=== PATIENT | female | born 1985 | race Caucasian/White ===

== ENCOUNTER 2018-11-19 08:27 | Emergency (ER) | payer SELFPAY ==
[2018-11-19 08:35] VITALS: BP 120/68
--- NOTE | 2018-11-19 09:01 | Emergency Department Report ---
Minor Respiratory - HPI Chief Complaint: Sore Throat Stated Complaint: HEADACHE/COLD/BACK PAIN Time Seen by Provider: 11/19/18 08:52 Duration: 3 Days Pain Location: Throat, Nose Severity: mild Minor Respiratory: Yes Rhinorrhea, Yes Sore Throat, Yes Able to Tolerate Fluids, Yes Cough, No Sick Contacts, No Chest Pain, No Shortness of Breath, No Fever Other History: Mrs. Stein presents with cold symptoms of nasal congestion cough. She has lower back pain. Subjective fever. Sick for 3 days. Mild symptoms. These Tylenol last night. Nonproductive cough. Denies chest pain denies abdominal pain. ED Review of Systems ROS: Stated complaint: HEADACHE/COLD/BACK PAIN Other details as noted in HPI Constitutional: fever. denies: malaise ENT: throat pain Respiratory: cough. denies: shortness of breath Cardiovascular: denies: chest pain Genitourinary: denies: urgency, dysuria, frequency, hematuria Musculoskeletal: back pain ED Past Medical Hx - Past Medical History Previous Medical History?: No - Surgical History Additional Surgical History: C/S - Social History Smoking Status: Never Smoker Substance Use Type: None - Medications Home Medications: Home Medications Medication Instructions Recorded Confirmed Last Taken Type Cetirizine HCl [Zyrtec] 10 mg PO DAILY 10 Days #10 tablet 11/19/18 Unknown Rx Hydrocodone/Chlorphen P-Stirex 5 ml PO BID 10 Days #100 ml 11/19/18 Unknown Rx [Tussionex Pennkinetic Susp] Minor Respiratory Exam - Exam General: Vital signs noted. No distress. Alert and acting appropriately. HEENT: Yes Moist Mucous Membranes, Yes Rhinorrhea, No Pharyngeal Erythema, No Pharyngeal Exudates, No Conjuctival Injection Neck: Yes Supple, No Adenopathy Lungs: Yes Good Air Exchange, No Wheezes, No Ronchi, No Stridor, No Cough, No Labored Respirations, No Retractions, No Use of Accessory Muscles, No Other Abnormal Lung Sounds Heart: Yes Regular, No Murmur Abdomen: Yes Normal Bowel Sounds, No Tenderness, No Peritoneal Signs Skin: No Rash, No Edema Neurologic: Alert and oriented, no deficits. Musculoskeletal: Unremarkable. ED Course Vital Signs 11/19/18 08:33 Temperature 98 F Pulse Rate 90 Respiratory 18 Rate Blood Pressure 120/68 O2 Sat by Pulse 99 Oximetry ED Medical Decision Making - Medical Decision Making Viral upper respiratory infection: Prescription provided for Zyrtec and Tussionex Critical care attestation.: If time is entered above; I have spent that time in minutes in the direct care of this critically ill patient, excluding procedure time. ED Disposition Clinical Impression: Viral URI Disposition: DC-01 TO HOME OR SELFCARE Is pt being admited?: No Does the pt Need Aspirin: No Condition: Stable Instructions: Upper Respiratory Infection (ED) Prescriptions: Cetirizine HCl [Zyrtec] 10 mg PO DAILY 10 Days #10 tablet Hydrocodone/Chlorphen P-Stirex [Tussionex Pennkinetic Susp] 5 ml PO BID 10 Days #100 ml
== END 2018-11-19 09:17 | disposition home or self-care (01) ==
LOC: ED 08:27
DX: J06.9 Acute upper respiratory infection, unspecified (principal)
CPT/HCPCS: 99282

== ENCOUNTER 2018-11-27 08:29 | Emergency (ER) | payer OTHER ==
[2018-11-27 08:35] VITALS: BP 165/87
[2018-11-27 08:57] LABS: Bilirubin,Urine NEG (Negative); Blood,Urine LG (Negative); Color,Urine Yellow (Yellow); Protein,Urine <15 mg/dL mg/dL (Negative); Urobilinogen,Urine < 2.0 mg/dL (<2.0)
[2018-11-27] MEDS ORDERED: IBUPROFEN PO ONE (08:57)
[2018-11-27 08:58] LABS: HCG Qualitative,Urine Negative (Negative)
[2018-11-27 09:18] LABS: Basophils % (Auto) 1.1 % (0.0-1.8); Eosinophils # (Auto) 0.1 K/mm3 (0.0-0.4); Eosinophils % (Auto) 2.1 % (0.0-4.3); Hematocrit 36.4 % (30.3-42.9); Hemoglobin 12.1 gm/dl (10.1-14.3); Lymphocytes # (Auto) 1.7 K/mm3 (1.2-5.4); Lymphocytes % (Auto) 37.3 % (13.4-35.0); Mean Corpuscular HGB Conc 33 % (30-34); Mean Corpuscular Volume 96 fl (79-97); Monocytes # (Auto) 0.3 K/mm3 (0.0-0.8); Monocytes % (Auto) 7.2 % (0.0-7.3); Platelet Count 249 K/mm3 (140-440); Red Blood Count 3.81 M/mm3 (3.65-5.03); Red Cell Distribution Width 13.3 % (13.2-15.2)
--- NOTE | 2018-11-27 09:27 | Emergency Department Report ---
ED General Adult HPI - General Chief complaint: Urogenital-Female Stated complaint: BODY PAIN/HEAD PAIN Time Seen by Provider: 11/27/18 08:46 Source: patient Mode of arrival: Ambulatory Limitations: No Limitations - History of Present Illness Initial comments: This is a 33-year-old female nontoxic, well nourished in appearance, no acute signs of distress presents to the ED with c/o of bodyaches and headache. Patient stated that she was recently diagnosed with the flu last week. Patient describes headache as diffuse with level of 3 out of 10. Patient denies thunderclap headache. Patient denies any radiation of pain. Patient denies any head trauma. Patient denies any visual changes. Patient denies worse headache. Patient also stated has abnormal and irregular menses. Denies any urinary symptoms. Patient denies any numbness, tingling, fever, chills, nausea, vomiting, chest pain, shortness of breath, stiff neck. Patient denies any rad iation of pain. Patient denies any allergies. Past medical history includes migraine headaches. -: week(s) (1) Radiation: non-radiation Severity scale (0 -10): 3 Quality: aching Consistency: constant Improves with: none Worsens with: none Associated Symptoms: headaches, other (body aches). denies: confusion, chest pain, cough, diaphoresis, fever/chills, loss of appetite, malaise, nausea/vomiting, rash, seizure, shortness of breath, syncope, weakness Treatments Prior to Arrival: none - Related Data Previous Rx's Medication Instructions Recorded Last Taken Type Cetirizine HCl [Zyrtec] 10 mg PO DAILY 10 Days #10 tablet 11/19/18 Unknown Rx Hydrocodone/Chlorphen P-Stirex 5 ml PO BID 10 Days #100 ml 11/19/18 Unknown Rx [Tussionex Pennkinetic Susp] Ibuprofen [Motrin] 600 mg PO Q8H PRN #20 tablet 11/27/18 Unknown Rx Allergies Allergy/AdvReac Type Severity Reaction Status Date / Time No Known Allergies Allergy Unverified 11/19/18 08:33 ED Review of Systems ROS: Stated complaint: BODY PAIN/HEAD PAIN Other details as noted in HPI Constitutional: denies: chills, fever Eyes: denies: eye pain, eye discharge, vision change ENT: denies: ear pain, throat pain Respiratory: denies: cough, shortness of breath, wheezing Cardiovascular: denies: chest pain, palpitations Endocrine: no symptoms reported Gastrointestinal: denies: abdominal pain, nausea, vomiting, diarrhea Genitourinary: abnormal menses. denies: urgency, dysuria, discharge Musculoskeletal: denies: back pain, joint swelling, arthralgia Skin: denies: rash, lesions Neurological: headache. denies: weakness, paresthesias Psychiatric: denies: anxiety, depression Hematological/Lymphatic: denies: easy bleeding, easy bruising ED Past Medical Hx - Past Medical History Previous Medical History?: No - Surgical History Past Surgical History?: Yes Additional Surgical History: C/S - Social History Smoking Status: Never Smoker Substance Use Type: None - Medications Home Medications: Home Medications Medication Instructions Recorded Confirmed Last Taken Type Cetirizine HCl [Zyrtec] 10 mg PO DAILY 10 Days #10 tablet 11/19/18 Unknown Rx Hydrocodone/Chlorphen P-Stirex 5 ml PO BID 10 Days #100 ml 11/19/18 Unknown Rx [Tussionex Pennkinetic Susp] Ibuprofen [Motrin] 600 mg PO Q8H PRN #20 tablet 11/27/18 Unknown Rx ED Physical Exam - General Limitations: No Limitations General appearance: alert, in no apparent distress - Head Head exam: Present: atraumatic, normocephalic - Eye Eye exam: Present: normal appearance, PERRL, EOMI - Neck Neck exam: Present: normal inspection, full ROM. Absent: tenderness, meningismus, lymphadenopathy - Respiratory Respiratory exam: Present: normal lung sounds bilaterally. Absent: respiratory distress, wheezes, rales, rhonchi, stridor, chest wall tenderness, accessory muscle use, decreased breath sounds, prolonged expiratory - Cardiovascular Cardiovascular Exam: Present: regular rate, normal rhythm, normal heart sounds. Absent: bradycardia, tachycardia, irregular rhythm, systolic murmur, diastolic murmur, rubs, gallop - GI/Abdominal GI/Abdominal exam: Present: soft, normal bowel sounds. Absent: distended, tenderness, guarding, rebound, rigid, diminished bowel sounds - Extremities Exam Extremities exam: Present: normal inspection, full ROM - Back Exam Back exam: Present: normal inspection, full ROM. Absent: tenderness, CVA tenderness (R), CVA tenderness (L), muscle spasm, paraspinal tenderness, vertebral tenderness, rash noted - Neurological Exam Neurological exam: Present: alert, oriented X3, normal gait - Expanded Neurological Exam Expanded Patient oriented to: Present: person, place, time Cranial nerves: EOM's Intact: Normal, Facial Sensation: Normal Cerebellar function: Finger to Nose: Normal Upper motor neuron: Pronator Drift: Normal, Sensory Extinction: Normal Sensory exam: Upper Extremity Light Touch: Normal, Upper Extremity Pin Prick: Normal, Upper Extremity Temperature: Normal, Lower Extremity Light Touch: Normal, Lower Extremity Pin Prick: Normal, Lower Extremity Temperature: Normal Motor strength exam: RUE: 5, LUE: 5, RLE: 5, LLE: 5 Best Eye Response (Kari): (4) open spontaneously Best Motor Response (Baldwin): (6) obeys commands Best Verbal Response (Kari): (5) oriented Kari Total: 15 - Psychiatric Psychiatric exam: Present: normal affect, normal mood - Skin Skin exam: Present: warm, dry, intact, normal color. Absent: rash ED Course Vital Signs 11/27/18 08:32 Temperature 98.2 F Pulse Rate 83 Respiratory 16 Rate Blood Pressure 165/87 O2 Sat by Pulse 100 Oximetry - Reevaluation(s) Reevaluation #1: 11/27/18 09:28 Patient is speaking in full sentences with no signs of distress noted. ED Medical Decision Making - Lab Data Result diagrams: 11/27/18 09:03 - Medical Decision Making This is a 33-year-old female that presents with headache, body aches, and abnormal menses. Patient is stable and was examined by me. Patient is neurologically stable. There is no stiff neck or neck pain. Vital signs are stable. Patient is afebrile. Patient received motrin which the patient stated that headache has subsided and resolved. Labs unremarkable. UA obtained. Symptoms can be related to flu that was recently diagnosed. Patient was referred to Follow-up with a primary care doctor in 3-5 days or if symptoms worsen and continue return to emergency room as soon as possible. At time of discharge, the patient does not seem toxic or ill in appearance. No acute signs of distress noted. Patient agrees to discharge treatment plan of care. No further questions noted by the patient. Critical care attestation.: If time is entered above; I have spent that time in minutes in the direct care of this critically ill patient, excluding procedure time. ED Disposition Clinical Impression: Body aches, Abnormal menses Headache Qualifiers: Headache type: unspecified Headache chronicity pattern: episodic headache Intractability: not intractable Qualified Code(s): R51 - Headache Disposition: DC-01 TO HOME OR SELFCARE Is pt being admited?: No Does the pt Need Aspirin: No Condition: Stable Instructions: Acute Headache (ED) Additional Instructions: Follow-up with a primary care/OBGYN doctor in 3-5 days or if symptoms worsen and continue return to emergency room as soon as possible. Prescriptions: Ibuprofen [Motrin] 600 mg PO Q8H PRN #20 tablet PRN Reason: Pain Referrals: PRIMARY CAREMD [Referring] - 3-5 Days DULCE MOREIRA MD [Staff Physician] - 3-5 Days [facility] [Outside] - 3-5 Days Forms: Work/School Release Form(ED)
[2018-11-27 09:29] LABS: BUN/Creatinine Ratio 14; Blood Urea Nitrogen 10 mg/dL (7-17); Hemolysis Index 7
== END 2018-11-27 09:47 | disposition home or self-care (01) ==
LOC: ED 08:29
DX: M79.18 Myalgia, other site (principal); R51 Headache; N92.6 Irregular menstruation, unspecified
CPT/HCPCS: 36415; 80048; 81001; 81025; 85025

== ENCOUNTER 2020-12-23 12:37 | Emergency (ER) | payer MEDICAID, OTHER ==
[2020-12-23] MEDS ORDERED: HYDROcodone/ACETAMINOPHEN 5-325 MG TAB PO ONE (13:12)
--- NOTE | 2020-12-23 13:18 | Emergency Department Report ---
ED Abdominal Pain HPI - General Chief Complaint: Abdominal Pain Stated Complaint: ABD PAIN/RIB PAIN/ABNORMAL BLEEDING PUI?: No Time Seen by Provider: 12/23/20 12:57 Source: patient Mode of arrival: Ambulatory Limitations: No Limitations - History of Present Illness Initial Comments: This is a 35-year-old female who presents to the ED complaining of right-sided flank/abdominal pain x2 weeks. Patient states that she has been having irregular menstrual cycle since 12/12/2020. Patient states that she went to her primary care physician on Saturday 5 days ago to have her IUD removed. Patient states that bleeding is still about the same, moderate flow. Patient denies nausea, vomiting, fever, chest pain or shortness of breath. MD Complaint: abdominal pain - Related Data Previous Rx's Medication Instructions Recorded Last Taken Type Cetirizine HCl [Zyrtec] 10 mg PO DAILY 10 Days #10 tablet 11/19/18 Unknown Rx Hydrocodone/Chlorphen P-Stirex 5 ml PO BID 10 Days #100 ml 11/19/18 Unknown Rx [Tussionex Pennkinetic Susp] Ibuprofen [Motrin] 600 mg PO Q8H PRN #20 tablet 11/27/18 Unknown Rx Naproxen [Naprosyn] 500 mg PO BID #30 tablet 12/23/20 Unknown Rx methOCARBAMOL [Robaxin TAB] 500 mg PO BID #20 tab 12/23/20 Unknown Rx Allergies Allergy/AdvReac Type Severity Reaction Status Date / Time No Known Allergies Allergy Verified 12/23/20 12:44 ED Review of Systems ROS: Stated complaint: ABD PAIN/RIB PAIN/ABNORMAL BLEEDING Other details as noted in HPI Comment: All other systems reviewed and negative ED Past Medical Hx - Past Medical History Previous Medical History?: No - Surgical History Additional Surgical History: C/S - Social History Smoking Status: Never Smoker Substance Use Type: None - Medications Home Medications: Home Medications Medication Instructions Recorded Confirmed Last Taken Type Cetirizine HCl [Zyrtec] 10 mg PO DAILY 10 Days #10 tablet 11/19/18 Unknown Rx Hydrocodone/Chlorphen P-Stirex 5 ml PO BID 10 Days #100 ml 11/19/18 Unknown Rx [Tussionex Pennkinetic Susp] Ibuprofen [Motrin] 600 mg PO Q8H PRN #20 tablet 11/27/18 Unknown Rx Naproxen [Naprosyn] 500 mg PO BID #30 tablet 12/23/20 Unknown Rx methOCARBAMOL [Robaxin TAB] 500 mg PO BID #20 tab 12/23/20 Unknown Rx ED Physical Exam - General Limitations: No Limitations General appearance: alert, in no apparent distress - Head Head exam: Present: atraumatic, normocephalic - Eye Eye exam: Present: normal appearance - ENT ENT exam: Present: mucous membranes moist - Neck Neck exam: Present: normal inspection - Respiratory Respiratory exam: Present: normal lung sounds bilaterally. Absent: respiratory distress, wheezes - Cardiovascular Cardiovascular Exam: Present: regular rate, normal rhythm. Absent: systolic murmur, diastolic murmur, rubs, gallop - GI/Abdominal GI/Abdominal exam: Present: soft, tenderness (mild palpation of the right upper region ), normal bowel sounds. Absent: guarding, rebound, mass - Extremities Exam Extremities exam: Present: normal inspection - Back Exam Back exam: Present: normal inspection - Neurological Exam Neurological exam: Present: alert, oriented X3 - Psychiatric Psychiatric exam: Present: normal affect, normal mood - Skin Skin exam: Present: warm, dry, intact, normal color. Absent: rash ED Course Vital Signs 12/23/20 12/23/20 12:45 13:41 Temperature 97.8 F Pulse Rate 105 H Respiratory 20 18 Rate Blood Pressure 126/79 O2 Sat by Pulse 98 Oximetry ED Medical Decision Making - Lab Data Result diagrams: 12/23/20 13:41 - Radiology Data Radiology results: report reviewed, image reviewed CT abdomen pelvis wo con INDICATION: Right abdominal pain. COMPARISON: None TECHNIQUE: Abdominal and pelvic CT exam performed. All CT scans at this location are performed using CT dose reduction for ALARA by means of automated exposure control. FINDINGS: CT ABDOMEN and PELVIS: Lung Bases: No significant abnormality. Liver: No significant abnormality. Biliary: No significant abnormality. Spleen: No significant abnormality. Pancreas: No significant abnormality. Adrenals: No significant abnormality. Kidneys: No significant abnormality. Lymphatics: No lymphadenopathy. Vasculature: No significant abnormality. Bowel: Cecum is midline. Appendicolith is seen within the distal appendix. Appendix is nondilated. No periappendiceal stranding. No obstruction. Pelvis: No significant abnormality. Osseous Structures: No aggressive osseous lesion. Additional Findings: None IMPRESSION: 1. There is an appendicolith but no evidence of appendicitis.No significant abnormality of the abdomen or pelvis. Signer Name: Tino Banks MD Signed: 12/23/2020 5:24 PM Workstation Name: [id number] Transcribed By: JESSICA Dictated By: Tino Banks MD Electronically Authenticated By: Tino Banks MD Signed Date/Time: 12/23/20 1724 - Medical Decision Making Is 35-year-old female with no prior medical history who presents to ED with abnormal uterine bleeding Patient right-sided pain is most likely coming from a muscle strain as patient states pain is worsened with movement. Abnormal bleeding is most likely secondary to recent IUD placement removal. Next I discussed with patient to follow-up with her SURGERY MANAGER doctor. Referrals given. Patient also advised to follow-up with a GI doctor. Discussed CT scan report with patient all labs are within normal limits urinalysis normal. Patient had no distress throughout ED stay. She understands instructions and will follow-up. Critical care attestation.: If time is entered above; I have spent that time in minutes in the direct care of this critically ill patient, excluding procedure time. ED Disposition Clinical Impression: Abnormal uterine bleeding (AUB), Flank pain, Muscle strain Disposition: DC-01 TO HOME OR SELFCARE Is pt being admited?: No Does the pt Need Aspirin: No Condition: Stable Instructions: Abdominal Pain (ED), Abnormal Uterine Bleeding, Flank Pain, Adult, [id number] Additional Instructions: Make sure to follow up with the primary care physician as discussed. Take all your medications as you've been prescribed. If you have any worsening symptoms or develop new symptoms please return to ED immediately. Prescriptions: Naproxen [Naprosyn] 500 mg PO BID #30 tablet methOCARBAMOL [Robaxin TAB] 500 mg PO BID #20 tab Referrals: PRIMARY CARE, [Primary Care Provider] - 3-5 Days [facility] [Provider Group] - 3-5 Days [facility] [Provider Group] - 3-5 Days [facility] [Outside] - 3-5 Days [facility] [Provider Group] - 3-5 Days Forms: Work/School Release Form(ED) Time of Disposition: 18:19
[2020-12-23 13:50] LABS: Basophils % (Auto) 0.7 % (0.0-1.8); Eosinophils # (Auto) 0.1 K/mm3 (0.0-0.4); Eosinophils % (Auto) 1.5 % (0.0-4.3); Hematocrit 32.7 % (30.3-42.9); Hemoglobin 11.2 gm/dl (10.1-14.3); Lymphocytes % (Auto) 14.1 % (13.4-35.0); Mean Corpuscular HGB Conc 34 % (30-34); Mean Corpuscular Volume 94 fl (79-97); Monocytes # (Auto) 0.5 K/mm3 (0.0-0.8); Monocytes % (Auto) 7.3 % (0.0-7.3); Platelet Count 260 K/mm3 (140-440); Red Blood Count 3.47 M/mm3 (3.65-5.03); Red Cell Distribution Width 13.8 % (13.2-15.2)
[2020-12-23 15:24] LABS: Bilirubin,Urine NEG (Negative); Blood,Urine LG (Negative); Color,Urine Yellow (Yellow); Mucus,Urine FEW /HPF; Protein,Urine <15 mg/dL mg/dL (Negative); Urobilinogen,Urine < 2.0 mg/dL (<2.0)
[2020-12-23 15:25] LABS: RBC,Urine > 182.0 /HPF (0.0-6.0)
--- NOTE | 2020-12-23 17:29 | Cat Scan Report ---
CT abdomen pelvis wo con INDICATION: Right abdominal pain. COMPARISON: None TECHNIQUE: Abdominal and pelvic CT exam performed. All CT scans at this location are performed using CT dose reduction for ALARA by means of automated exposure control. FINDINGS: CT ABDOMEN and PELVIS: Lung Bases: No significant abnormality. Liver: No significant abnormality. Biliary: No significant abnormality. Spleen: No significant abnormality. Pancreas: No significant abnormality. Adrenals: No significant abnormality. Kidneys: No significant abnormality. Lymphatics: No lymphadenopathy. Vasculature: No significant abnormality. Bowel: Cecum is midline. Appendicolith is seen within the distal appendix. Appendix is nondilated. N o periappendiceal stranding. No obstruction. Pelvis: No significant abnormality. Osseous Structures: No aggressive osseous lesion. Additional Findings: None IMPRESSION: 1. There is an appendicolith but no evidence of appendicitis.No significant abnormality of the abdome n or pelvis. Signer Name: Tino Banks MD Signed: 12/23/2020 5:24 PM Workstation Name: [id number]
[2020-12-23 18:13] VITALS: BP 121/75
== END 2020-12-23 18:31 | disposition home or self-care (01) ==
LOC: ED 12:37
DX: S39.011A Strain of muscle, fascia and tendon of abdomen, initial encounter (principal); N93.9 Abnormal uterine and vaginal bleeding, unspecified; Z98.890 Other specified postprocedural states; Z79.1 Long term (current) use of non-steroidal anti-inflammatories (NSAID); Z79.899 Other long term (current) drug therapy; X58.XXXA Exposure to other specified factors, initial encounter; Y93.89 Activity, other specified; Y92.89 Other specified places as the place of occurrence of the external cause; Y99.8 Other external cause status
CPT/HCPCS: 36415; 74176; 81001; 84702; 85025; 86900; 86901; 87086